=== PATIENT | female | born 2000 | race Hispanic/Latino ===

== ENCOUNTER 2023-06-13 21:19 | Observation (INO) | payer BC, MEDICAID ==
[~2023-06-13] VITALS: Ht 160 cm; Wt 81.6 kg
[2023-06-13 21:21] VITALS: O2SAT 98
[2023-06-13 21:22] VITALS: BP 129/60; PULSE 97; RESP 18
[2023-06-13 22:04] LABS: APPEARANCE,URINE CLEAR (CLEAR); BILIRUBIN,URINE NEGATIVE (NEGATIVE); COLOR,URINE LIGHT-YELLOW (YELLOW); GLUCOSE, URINE (UA) NEGATIVE (NEGATIVE); KETONES,URINE NEGATIVE (NEGATIVE); LEUKOCYTE ESTERASE ,URINE 250 Leu/uL (NEGATIVE); NITRATE,URINE NEGATIVE (NEGATIVE); OCCULT BLOOD,URINE NEGATIVE (NEGATIVE); PROTEIN,URINE NEGATIVE (NEGATIVE); UROBILINOGEN,URINE 0.2 mg/dL (0.2-1.0)
[2023-06-13 22:05] LABS: ADD UA MICROSCOPIC YES
[2023-06-13 22:09] LABS: AMPHET/METH SCREEN,URINE NEGATIVE (NEGATIVE); BARBITURATE SCREEN, URINE NEGATIVE (NEGATIVE); BENZODIAZEPINES SCREEN,URINE NEGATIVE (NEGATIVE); CANNABINOID SCREEN,URINE POSITIVE (NEGATIVE); COCAINE SCREEN,URINE NEGATIVE (NEGATIVE); OPIATE SCREEN,URINE NEGATIVE (NEGATIVE); PHENCYCLIDINE SCREEN,URINE NEGATIVE (NEGATIVE)
[2023-06-13 22:13] LABS: BACTERIA,URINE RARE /HPF (None Seen); MUCUS,URINE RARE LPF (None Seen); SQUAMOUS EPITHELIAL CELL,UR FEW /HPF (0-2)
== END 2023-06-13 22:58 | disposition home or self-care (01) ==
LOC: EDH 21:19 → LDH 21:20
PROVIDERS: ADMIT Obstetrics & Gynecology; ATTEND Obstetrics & Gynecology
DX: O62.9 Abnormality of forces of labor, unspecified (principal); O26.893 Other specified pregnancy related conditions, third trimester; R05.9 Cough, unspecified; O99.343 Other mental disorders complicating pregnancy, third trimester; F32.A Depression, unspecified; F12.90 Cannabis use, unspecified, uncomplicated; O99.324 Drug use complicating childbirth; Z3A.35 35 weeks gestation of pregnancy
CPT/HCPCS: 59025; 80305; 87088; 81001; G0378; G0379

== ENCOUNTER 2023-06-30 22:00 | Observation (INO) | payer BC ==
[~2023-06-30] VITALS: Ht 160 cm; Wt 84.8 kg
[2023-06-30 22:06] VITALS: O2SAT 98
[2023-06-30 22:08] VITALS: BP 113/84; PULSE 93; RESP 18
[2023-06-30] MEDS ORDERED: LACTATED RINGERS 1000ML 1,000 ML IV SCH (22:30)
[2023-06-30 22:36] LABS: ADD UA MICROSCOPIC YES; APPEARANCE,URINE CLEAR (CLEAR); BILIRUBIN,URINE NEGATIVE (NEGATIVE); COLOR,URINE LIGHT-YELLOW (YELLOW); GLUCOSE, URINE (UA) 50 mg/dL (NEGATIVE); KETONES,URINE NEGATIVE (NEGATIVE); LEUKOCYTE ESTERASE ,URINE 250 Leu/uL (NEGATIVE); NITRATE,URINE NEGATIVE (NEGATIVE); OCCULT BLOOD,URINE NEGATIVE (NEGATIVE); PH,URINE 6.5 (5.0-8.0); PROTEIN,URINE 30 mg/dL (NEGATIVE); UROBILINOGEN,URINE 0.2 mg/dL (0.2-1.0)
[2023-06-30 22:42] LABS: AMPHET/METH SCREEN,URINE NEGATIVE (NEGATIVE); BARBITURATE SCREEN, URINE NEGATIVE (NEGATIVE); BENZODIAZEPINES SCREEN,URINE NEGATIVE (NEGATIVE); CANNABINOID SCREEN,URINE POSITIVE (NEGATIVE); COCAINE SCREEN,URINE NEGATIVE (NEGATIVE); OPIATE SCREEN,URINE NEGATIVE (NEGATIVE); PHENCYCLIDINE SCREEN,URINE NEGATIVE (NEGATIVE)
[2023-06-30 22:45] LABS: BACTERIA,URINE RARE /HPF (None Seen); CALCIUM OXALATE CRYSTALS,UR RARE /LPF (None Seen); MUCUS,URINE RARE LPF (None Seen); SQUAMOUS EPITHELIAL CELL,UR MOD /HPF (0-2)
[2023-06-30 23:19] LABS: SARS-CoV-2, RNA, NAAT NEGATIVE SARS CoV-2 (NEGATIVE)
[2023-07-01] MEDS ORDERED: CEFTRIAXONE 1G VIAL IVPB ONE (01:00)
[2023-07-01] MEDS ORDERED: MORPHINE 2 MG SYG IVP ONE (01:00)
[2023-07-14] MEDS ORDERED: PREN-154 PO (23:58)
[2023-07-15] MEDS ORDERED: IBUP-2077 PO (16:06)
== END 2023-07-01 03:15 | disposition home or self-care (01) ==
LOC: EDH 22:00 → LDH 22:01
PROVIDERS: ADMIT Obstetrics & Gynecology; ATTEND Obstetrics & Gynecology
DX: O62.9 Abnormality of forces of labor, unspecified (principal); Z20.822 Contact with and (suspected) exposure to COVID-19; O99.323 Drug use complicating pregnancy, third trimester; F12.90 Cannabis use, unspecified, uncomplicated; Z3A.38 38 weeks gestation of pregnancy
CPT/HCPCS: 80305; 87088; 81001; 87635; 96366; 96375; 96365; 96361; G0378 ×5; J7120; J2270; J0696; 96360

== ENCOUNTER 2024-09-29 19:39 | Inpatient (IN) | payer SELFPAY ==
[~2024-09-29] VITALS: Ht 160 cm; Wt 98.0 kg
[~2024-09-29 19:39] MED LIST: IBUP-2077 PO; PREN-154 PO
[2024-09-29 20:14] LABS: APPEARANCE,URINE CLEAR (CLEAR); BILIRUBIN,URINE NEGATIVE (NEGATIVE); COLOR,URINE YELLOW (YELLOW); GLUCOSE, URINE (UA) >=1000 mg/dL (NEGATIVE); KETONES,URINE 10 mg/dL (NEGATIVE); LEUKOCYTE ESTERASE ,URINE 500 Leu/uL (NEGATIVE); NITRATE,URINE NEGATIVE (NEGATIVE); OCCULT BLOOD,URINE NEGATIVE (NEGATIVE); PH,URINE 5.5 (5.0-8.0); PROTEIN,URINE 30 mg/dL (NEGATIVE); UROBILINOGEN,URINE 0.2 mg/dL (0.2-1.0)
[2024-09-29 20:34] LABS: ADD UA MICROSCOPIC YES
[2024-09-29 20:40] LABS: BACTERIA,URINE FEW /HPF (None Seen); MUCUS,URINE RARE LPF (None Seen); SQUAMOUS EPITHELIAL CELL,UR MOD /HPF (0-2)
[2024-09-29] MEDS ORDERED: ePHEDrine SULFate 50 MG/ML AMPULE IVP PRN (21:00)
[2024-09-29] MEDS ORDERED: LACTATED RINGERS 500 ML 500 ML IV PRN (21:00)
[2024-09-29] MEDS ORDERED: NALoxone HCL 0.4 MG/1 ML ML IV PRN (21:00)
[2024-09-29] MEDS ORDERED: CALCIUM CARB 500MG CHEW TAB PO PRN (21:00)
[2024-09-29] MEDS: AMPICILLIN 2GM+NS 100ML 100 ML IV SCH (21:14)
[2024-09-29] MEDS: LACTATED RINGERS 1000ML 1,000 ML IV PRN (21:16)
[2024-09-29 21:54] LABS: HEMATOCRIT 31.9 % (36-48); MEAN CORPUSCULAR HEMOGLOBIN 21.7 pg (27.0-33.0); MEAN CORPUSCULAR HGB CONC 30.1 g/dL (32.0-36.0); MEAN CORPUSCULAR VOLUME 72.2 fL (79-99); NUCLEATED RED BLOOD CELLS 0.1 % (0.0-0.19); PLATELET COUNT (AUTO) 332 K/uL (130-400); RED BLOOD CELL COUNT(AUTO) 4.42 MIL/uL (4.00-5.50); RED CELL DISTRIBUTION WIDTH 16.1 % (11.0-15.5); WHITE BLOOD COUNT (AUTO) 14.7 K/uL (4.8-10.8)
[2024-09-29 22:36] LABS: HIV 1&2 ANTIBODY Non-Reactive (Negative); HIV-1 p24 Antigen Non-Reactive (Negative)
[2024-09-29] MEDS: DINOPROSTONE 10 MG VAGINAL SUPP VG ONE (23:55)
[2024-09-30] MEDS: AMPICILLIN 1GM+NS 50ML 50 ML IV SCH (00:49)
[2024-09-30] MEDS: PROMETHAZINE HCL 25 MG/ML 1ML AMPULE IM PRN (06:51)
[2024-09-30] MEDS: MEPERIDINE-PF 50 MG/ML SYG IVP PRN (06:54)
[2024-09-30] MEDS ORDERED: FENTanyl CITRate PF 50 MCG/1 ML 2ML VIAL ONE (09:45)
[2024-09-30] MEDS ORDERED: LANOLIN 30GM OINTMENT TP PRN (13:30)
[2024-09-30] MEDS ORDERED: MEASLES/MUMPS/RUBELLA VACCINE, LIVE 0.5 ML/VIAL SQ PRN (13:30)
[2024-09-30 14:52] LABS: RAPID PLASMA REAGIN NONREACTIVE (NONREACTIVE)
[2024-09-30] MEDS: ibuPROFEN 600 MG TABLET PO PRN (16:41)
--- NOTE | 2024-09-30 19:12 | NUR ---
REPORT GIVEN TO ALEX CONTEH RN, PATIENT CARE RELINQUISHED AT THIS TIME.
[2024-09-30 19:40] VITALS: BP 127/64; PULSE 91; RESP 20; TEMP 98.4
[2024-09-30] MEDS: doCUSate SODIUM 100 MG CAP PO SCH (21:20)
[2024-09-30] MEDS: DIPH,PERTUSS(ACELL),TET VAC/PF 0.5 ML VIAL IM PRN (21:22)
[2024-09-30 23:15] VITALS: BP 134/80; PULSE 90; RESP 18; TEMP 97.9
[2024-09-30] MEDS: FLU VACC TS2024-25(6MOS UP)/PF 45 MCG/0.5 ML ML IM ONE (23:15)
[2024-09-30] MEDS: BENZOCAINE/LANOLIN/ALOE VERA 60 ML AEROSOL TP PRN (23:30)
[2024-09-30] MEDS: WITCH HAZEL 1 PAD TP PRN (23:30)
--- NOTE | 2024-10-01 03:37 | OP ---
DATE OF PROCEDURE: 09/30/2024 DELIVERY NOTE This is a 23-year-old para 3 at term, GBS positive, late care and she has undergone a normal spontaneous vaginal delivery of a female over a second-degree vaginal laceration. The baby was delivered OP presentation, suctioned and delivered. The Apgars were 9 at 1 minute, 9 at 5 minutes. The weight is 8 pounds 1.5 ounces (3670 grams. Placenta delivered intact. Estimated blood loss 250 mL. Repair of the laceration in the vaginal and perineal area with 2-0 Vicryl suture and epidural anesthetic. All counts correct. This is a patient of DARIAN/MARGE. TID: [id number] RECEIPT: [id number]
[2024-10-01 03:39] VITALS: BP 97/60; PULSE 90; RESP 18; TEMP 97.8
[2024-10-01 03:46] VITALS: BP 120/84; PULSE 63; RESP 20; TEMP 98
[2024-10-01 06:49] LABS: MEAN CORPUSCULAR HEMOGLOBIN 21.2 pg (27.0-33.0); MEAN CORPUSCULAR HGB CONC 29.6 g/dL (32.0-36.0); MEAN CORPUSCULAR VOLUME 71.4 fL (79-99); RED BLOOD CELL COUNT(AUTO) 3.64 MIL/uL (4.00-5.50); RED CELL DISTRIBUTION WIDTH 16.4 % (11.0-15.5)
[2024-10-01 07:00] VITALS: BP 114/55; PULSE 91; RESP 18; TEMP 97.7
[2024-10-01 11:00] VITALS: BP 114/61; PULSE 79; RESP 17; TEMP 97.9
--- NOTE | 2024-10-01 14:25 | NUR ---
DISCHARGE INSTRUCTIONS DISCHARGE INSTRUCTIONS REVIEWED AND GIVEN TO PATIENT AND HER SPOUSE AT BEDSIDE. PATIENT VERBALIZED UNDERSTANDING, NO QUESTIONS OR CONCERNS VOICED. PATIENT STATES SHE IS GOING TO CHANGE HER BABY AND WILL CALL [facility] WHEN READY TO BE TRANSPORTED VIA WHEELCHAIR TO THEIR PRIVATE VEHICLE.
--- NOTE | 2024-10-01 15:58 | NUR ---
DISCHARGE PATIENT DISCHARGED HOME IN STABLE CONDITION, PATIENT TRANSPORTED VIA WHEELCHAIR WITH HER BABY IN HER ARMS TO THEIR PRIVATE VEHICLE BY [facility]. PATIENT'S SPOUSE AT SIDE AND DRIVING THEM HOME.
== END 2024-10-01 15:58 | disposition home or self-care (01) | DRG 807 ==
LOC: EDH 19:39 → OBSVTOIN 20:02 → LDH 20:02 → WSH 09-30 16:43
PROVIDERS: ADMIT Obstetrics & Gynecology; ATTEND Obstetrics & Gynecology
PROC: 10E0XZZ Delivery of Products of Conception, External Approach (ICD-10-PCS; principal; 2024-09-30)
PROC: 0KQM0ZZ Repair Perineum Muscle, Open Approach (ICD-10-PCS; 2024-09-30)
PROC: 3E0R3BZ Introduction of Anesthetic Agent into Spinal Canal, Percutaneous Approach (ICD-10-PCS; 2024-09-30)
PROC: 00HU33Z Insertion of Infusion Device into Spinal Canal, Percutaneous Approach (ICD-10-PCS; 2024-09-30)
DX: O99.824 Streptococcus B carrier state complicating childbirth (principal); Z37.0 Single live birth; O70.1 Second degree perineal laceration during delivery; Z3A.39 39 weeks gestation of pregnancy; O64.0XX0 Obstructed labor due to incomplete rotation of fetal head, not applicable or unspecified
CPT/HCPCS: 36415; 81001; 85027; 86592; 86701; 86850; 86900; 86901; 87086; 87340; 87390; 90715; 96365; 99285; A4314; G0378; J0290; J2175; J2550; J2590; J2795; J3010; J7120; Q2035; Q2038